=== PATIENT | male | born 1945 | race African-American/Black ===

== ENCOUNTER → 2016-12-03 | Outpatient (CLI) | payer OTHER ==
[~2016-12-03] MED LIST: ALBUTEROL2.5 MG/3 M IH; AMBIEN5 MG GT; AMBIEN5 MG PO; APRESOLINE25 MG GT; APRESOLINE25 MG PO; ASPIR 8181 M1 PO; ASPIR-LOW81 MG PO; ASPIRIN81 M2 GT; ATARAX,VISTARIL25 MG GT; ATIVAN0.5 MG PO; AUGMENTIN875 MG PO; Aspirin Chewable GT; BACTRIM,SEPT1 TABLET PO; BANOPHEN12.5 MG/5 GT; BENADRYL A12.5 MG/5 GT; BENADRYL25 MG GT; CARAFATE1 GM GT; CARAFATE1 GM PO; CARAFATE100 MG/ML GT; CARDENE30 MG PO; CARVEDILOL25 MG GT; CEFEPIME HCL1 GM IM; CEFEPIME-D1 GM/50 ML IV; CONSTULOSE10 GM/15 M GT; CONSTULOSE10 GM/15 M PO; COREG12.5 M1 GT; COREG12.5 M1 PO; COREG25 M1 GT; COREG25 M1 PO; COUGH SYRU100 MG/5 M GT; Coreg PO; DAILY VIT FORM1 EACH PO; DAILY VITE WIT1 EACH GT; DIALYVITE 3,001 EACH GT; DIAZEPAM10 MG GT; DITROPAN XL10 MG PO; DULCOLAX10 MG PR; DUONEB 2.5-0.5 M3 ML AEROSOL; DURAGESIC50 MCG TD; EPOGEN,PRO3000 UNITS IV; Epogen,Procrit IV; FENTANYL1 EAC1 TD; FEOSOL325 MG PO; FERROUS SU220 MG/53 PO; FLEET ENEMA-AD118 ML PR; FLONASE16 G1 BOTH NARES; FOLIC ACID1 MG PO; GAVILAX17 GM PO; HYDRALAZINE HCL25 MG GT; HYDRALAZINE HCL25 MG PO; HYDROXYZINE HCL25 MG GT; K-PHOS NEUTRAL250 M1 GT; KLONOPIN1 MG PO; KLOR-CON 1010 ME1 PO; LACTULOSE10 GM/151 PO; LASIX40 MG PO; LEVAQUIN250 MG PO; LEVAQUIN500 MG PO; LEVOFLOXACIN500 MG GT; LEXAPRO20 MG PO; LO-DOSE ASPIRIN81 M1 PO; LOW DOSE ASPIRI81 M1 PO; METOCLOPRAMIDE H5 MG GT; METOCLOPRAMIDE H5 MG PO; MILK OF MAGN PO; MIRALAX17 GM GT; MIRALAX255 GM GT; MOBIC7.5 MG PO; MORPHINE SULFAT15 M1 PO; NEPHRO-VITE,1 TABLET GT; NEPRO CARB STE237 ML GT; NICARDIPINE HCL30 MG GT; NOVOLOG PE100 UNITS/ SC; OMEPRAZOLE40 M1 GT; OXYCODONE HCL10 MG PO; PAIN & FEVER325 MG PO; PERIDEX1 ML MM; PHOSPHA250 MG PO; POLYETHYLENE GL17 GM PO; PREDNISONE10 MG PO; PREVACID SOLUTA30 MG GT; PREVACID30 MG GT; PREVACID30 MG PO; PRILOSEC40 MG GT; PRO-STAT AWC LI30 ML PO; PROCRIT10000 UNI1 IV; PROMETHAZINE HC25 M1 PO; PROMETHAZINE12.5 M1 PO; PROTEIN POWDER454 G1 PO; PROTONIX40 MG PO; PROVENTIL HFA6.7 GM IH; PROVENTIL,2.5 MG/0.5 AEROSOL; PROVENTIL,2.5 MG/3 M IH; PULMICORT0.5 MG/21 IH; Q-TUSSIN DM SY240 ML PO; REGLAN5 MG GT; REQUIP0.5 MG GT; REQUIP0.5 MG PO; SENNA8.6 M1 GT; SENNA8.6 MG GT; SENNA8.6 MG PO; SENOKOT,SENN1 TABLET GT; SENSIPAR30 MG GT; SENSIPAR30 MG PO; SODIUM CHLORIDE1 G1 PO; SUCRALFATE1 GM GT; Sensipar GT; TRAZODONE HCL50 MG PO; TYLENOL REGULA325 MG GT; TYLENOL REGULA325 MG PO; VALIUM10 MG GT; VANCOCIN HCL125 MG PO; VENOFER100 MG/5 M IV; VITAMIN D31000 UNIT GT; ZOFRAN0.8 MG/1 M GT; ZOFRAN4 MG GT; ZOFRAN4 MG PO; [UNRECOGNIZED DRUG - OTHER] PO
== END ==
LOC: RAD 13:10 → EDSTATUS 13:30 → RAD 13:30
PROC: 0DH67UZ Insertion of Feeding Device into Stomach, Via Natural or Artificial Opening (ICD-10-PCS; principal; 2016-12-03)
DX: Z43.1 Encounter for attention to gastrostomy (principal)
CPT/HCPCS: C1766

== ENCOUNTER → 2017-03-04 | Outpatient (CLI) | payer OTHER ==
[~2017-03-04] VITALS: Ht 172.7 cm; Wt 53.5 kg
== END ==
LOC: RAD 13:48
PROC: 0DHA7DZ Insertion of Intraluminal Device into Jejunum, Via Natural or Artificial Opening (ICD-10-PCS; principal; 2017-03-04)
DX: K94.20 Gastrostomy complication, unspecified (principal)
CPT/HCPCS: C1769

== ENCOUNTER → 2017-06-04 | Outpatient (CLI) | payer OTHER ==
[~2017-06-04] MED LIST changes: +CORTIZONE-10 PL57 GM TP; +HYDRALAZINE HCL10 MG PO
== END ==
LOC: RAD 10:35
PROC: 0DH87UZ Insertion of Feeding Device into Small Intestine, Via Natural or Artificial Opening (ICD-10-PCS; principal; 2017-06-04)
DX: K94.23 Gastrostomy malfunction (principal)
CPT/HCPCS: C1766

== ENCOUNTER 2017-06-24 20:57 | Emergency (ER) | payer OTHER ==
[~2017-06-24] VITALS: Ht 167.6 cm; Wt 60.4 kg
[2017-06-24 22:18] LABS: HEMATOCRIT 42.4 % (38.0-50.0); MCH 30.8 PG (29.0-34.0); MCHC 30.9 G/DL (30.0-36.0); MCV 99.5 FL (86-99); MEAN PLAT.VOLUME 10.7 uM^3 (9.0-12.4); PLATELET COUNT 236 K/uL (156-360); RBC DIS.WIDTH-SD 55.3 % (39-53); RED BLOOD COUNT 4.26 M/uL (4.00-5.50); WHITE BLOOD COUNT 10.8 K/uL (4.1-10.2)
[2017-06-24 22:24] LABS: INTER. NORMALIZED RATIO 1.2
[2017-06-24 22:27] LABS: PTT 35.3 SEC (25-37)
[2017-06-24 22:29] LABS: CHLORIDE 94 mEq/L (99-109); SODIUM 140 mEq/L (136-147)
[2017-06-24 22:32] LABS: GLUCOSE 120 mg/dL (70-99)
[2017-06-24 22:33] LABS: ANION GAP 18 MEQ/L (2-14); TOTAL BILIRUBIN 0.7 mg/dL (0.0-1.0)
[2017-06-24 22:35] LABS: ALKALINE PHOSPHATASE 629 IU/L (3-129); GFR ESTIMATE (CALCULATED) 16 mL/min/
[2017-06-24 22:36] LABS: UREA NITROGEN (BUN) 66 mg/dL (9-23)
[2017-06-25 02:27] VITALS: BP 115/65
== END 2017-06-25 02:29 | disposition home or self-care (01) ==
LOC: EME → EDBD 20:57 → EME 06-25 02:29
PROVIDERS: Emergency Medicine
DX: K52.9 Noninfective gastroenteritis and colitis, unspecified (principal); I12.0 Hypertensive chronic kidney disease with stage 5 chronic kidney disease or end stage renal disease; E11.22 Type 2 diabetes mellitus with diabetic chronic kidney disease; N18.6 End stage renal disease; Z99.2 Dependence on renal dialysis; J44.9 Chronic obstructive pulmonary disease, unspecified
CPT/HCPCS: 71020; 76705; 80053; 83605; 85027; 85610; 85730; 86900; 86901; 99281; 99285; J7030

== ENCOUNTER 2017-08-19 02:01 | Inpatient (IN) | payer OTHER ==
[~2017-08-19] VITALS: Ht 172.7 cm; Wt 68.4 kg
[~2017-08-19 02:01] MED LIST changes: -CONSTULOSE10 GM/15 M PO; -Q-TUSSIN DM SY240 ML PO; +SENSIPAR60 MG GT; +SODIUM CHLORIDE1 G1 GT; -SODIUM CHLORIDE1 G1 PO; +TUSSIN CHE100 MG/5 M GT; -ZOFRAN4 MG PO
[2017-08-19 02:36] LABS: BASOPHIL COUNT 0.1 K/uL (0-0.1); EOSINOPHIL (%) 0.2 % (0-5); HEMATOCRIT 44.1 % (38.0-50.0); IMMATURE GRANULOCYTE (%) 0.5 % (0.0-0.7); IMMATURE GRANULOCYTE COUNT 0.1 K/uL; INSTRUMENT ABS NEUTROPHIL CT 12.8 K/uL; LYMPHOCYTE COUNT 0.9 K/uL (1.0-2.8); MCHC 30.4 G/DL (30.0-36.0); MCV 102.1 FL (86-99); MEAN PLAT.VOLUME 11.8 uM^3 (9.0-12.4); MONOCYTE COUNT 0.7 K/uL (0-0.8); NEUTROPHIL (%) 87.8 % (45-76); NEUTROPHIL COUNT 12.8 K/uL (1.8-6.4); NRBC (%) 0.1 /100 WBC (0-0); PLATELET COUNT 147 K/uL (156-360); RBC DIS.WIDTH-SD 64.2 % (39-53); RED BLOOD COUNT 4.32 M/uL (4.00-5.50); WHITE BLOOD COUNT 14.6 K/uL (4.1-10.2)
[2017-08-19 02:41] LABS: INTER. NORMALIZED RATIO 1.3; PROTHROMBIN TIME 14.1 SEC (10.2-12.9)
[2017-08-19 02:44] LABS: PTT 38.6 SEC (25-37)
[2017-08-19 02:46] LABS: CHLORIDE 93 mEq/L (99-109); POTASSIUM 3.8 mEq/L (3.7-5.4); SODIUM 142 mEq/L (136-147)
[2017-08-19 02:48] LABS: GLUCOSE 217 mg/dL (70-99)
[2017-08-19 02:50] LABS: ANION GAP 18 MEQ/L (2-14); TOTAL BILIRUBIN 0.6 mg/dL (0.0-1.0)
[2017-08-19 02:52] LABS: ALKALINE PHOSPHATASE 579 IU/L (3-129); GFR ESTIMATE (CALCULATED) 22 mL/min/
[2017-08-19 02:53] LABS: UREA NITROGEN (BUN) 28 mg/dL (9-23)
[2017-08-19 02:55] LABS: LIPASE 49 U/L (1.0-51.0)
[2017-08-19 03:10] LABS: TROP-I INTERPRETATION NEGATIVE; TROPONIN-I 0.04 ng/mL (0.0-0.30)
[2017-08-19 07:39] LABS: HEMATOCRIT 38.7 % (38.0-50.0)
[2017-08-19] MEDS ORDERED: VITAMIN D31000 UNI2 GT (11:25)
[2017-08-19 12:05] VITALS: BP 131/63
[2017-08-19 15:17] VITALS: BP 142/63
[2017-08-19 19:35] VITALS: BP 131/71
[2017-08-19 23:46] VITALS: BP 132/65
[2017-08-20 04:41] VITALS: BP 130/69
[2017-08-20 08:02] LABS: HEMATOCRIT 33.9 % (38.0-50.0); MCH 31.1 PG (29.0-34.0); MCHC 29.2 G/DL (30.0-36.0); MCV 106.6 FL (86-99); MEAN PLAT.VOLUME 9.9 uM^3 (9.0-12.4); WHITE BLOOD COUNT 13.3 K/uL (4.1-10.2)
[2017-08-20 08:14] LABS: PLATELET COUNT 217 K/uL (156-360); RED BLOOD COUNT 3.18 M/uL (4.00-5.50)
[2017-08-20 08:19] LABS: ANION GAP 11 MEQ/L (2-14); CHLORIDE 103 MEQ/L (99-109); POTASSIUM 3.4 MEQ/L (3.7-5.4); SAMPLE HEMOLYSIS CHECK 0; SAMPLE ICTERIC CHECK 0; SAMPLE LIPEMIA CHECK 0; SODIUM 144 MEQ/L (136-147); UREA NITROGEN (BUN) 41 mg/dL (9-23)
[2017-08-20 08:52] LABS: GFR ESTIMATE (CALCULATED) 15 mL/min/; GLUCOSE 114 mg/dL (70-99)
[2017-08-20 09:16] VITALS: BP 142/84
[2017-08-20 11:52] VITALS: BP 146/83
[2017-08-20 18:55] LABS: HEMATOCRIT 34.3 % (38.0-50.0); MCV 108.2 FL (86-99)
[2017-08-20 20:27] VITALS: BP 138/71
[2017-08-20 23:33] VITALS: BP 160/67
[2017-08-21] VITALS (7 sets, daily range): BP systolic 141–199; BP diastolic 70–92
[2017-08-21 00:38] LABS: HEMATOCRIT 35.7 % (38.0-50.0); MCV 107.2 FL (86-99)
[2017-08-21 06:13] LABS: EOSINOPHIL (%) 2.5 % (0-5); EOSINOPHIL COUNT 0.2 K/uL (0-0.3); HEMATOCRIT 35.9 % (38.0-50.0); IMMATURE GRANULOCYTE (%) 0.3 % (0.0-0.7); LYMPHOCYTE COUNT 1.2 K/uL (1.0-2.8); MCH 32.4 PG (29.0-34.0); MCHC 29.5 G/DL (30.0-36.0); MCV 109.8 FL (86-99); MONOCYTE (%) 7.5 % (3-12); MONOCYTE COUNT 0.7 K/uL (0-0.8); NEUTROPHIL (%) 76.1 % (45-76); RBC DIS.WIDTH-CV 18.2 % (11.8-14.6); RBC DIS.WIDTH-SD 73.6 % (39-53); RED BLOOD COUNT 3.27 M/uL (4.00-5.50); WHITE BLOOD COUNT 9.2 K/uL (4.1-10.2)
[2017-08-21 06:43] LABS: ANION GAP 12 MEQ/L (2-14); CHLORIDE 110 MEQ/L (99-109); GFR ESTIMATE (CALCULATED) 23 mL/min/; GLUCOSE 122 mg/dL (70-99); POTASSIUM 3.8 MEQ/L (3.7-5.4); SAMPLE HEMOLYSIS CHECK 0; SAMPLE ICTERIC CHECK 0; SAMPLE LIPEMIA CHECK 0; SODIUM 147 MEQ/L (136-147)
[2017-08-21 06:54] LABS: UREA NITROGEN (BUN) 20 mg/dL (9-23)
[2017-08-21 08:13] LABS: HEMATOLOGY COMMENT 1 UNABLE TO REPORT
[2017-08-21 08:14] LABS: PLATELET COUNT UNABLE TO REPORT K/uL (156-360)
[2017-08-22 03:33] VITALS: BP 162/72
[2017-08-22 06:47] LABS: HEMATOCRIT 35.2 % (38.0-50.0); MCH 32.5 PG (29.0-34.0); MCHC 29.5 G/DL (30.0-36.0); MEAN PLAT.VOLUME 9.9 uM^3 (9.0-12.4); RBC DIS.WIDTH-CV 18.3 % (11.8-14.6); RBC DIS.WIDTH-SD 72.9 % (39-53); WHITE BLOOD COUNT 8.8 K/uL (4.1-10.2)
[2017-08-22 07:05] LABS: PLATELET COUNT 194 K/uL (156-360)
[2017-08-22 07:12] LABS: ANION GAP 13 MEQ/L (2-14); CHLORIDE 106 MEQ/L (99-109); GFR ESTIMATE (CALCULATED) 14 mL/min/; GLUCOSE 175 mg/dL (70-99); POTASSIUM 3.4 MEQ/L (3.7-5.4); SAMPLE HEMOLYSIS CHECK 0; SAMPLE ICTERIC CHECK 0; SAMPLE LIPEMIA CHECK 0; SODIUM 148 MEQ/L (136-147); UREA NITROGEN (BUN) 42 mg/dL (9-23)
[2017-08-22 09:10] VITALS: BP 159/81
[2017-08-22 11:42] VITALS: BP 148/75
[2017-08-22 16:07] VITALS: BP 151/90
[2017-08-22 19:35] VITALS: BP 181/72
[2017-08-23 03:31] VITALS: BP 174/72
[2017-08-23 06:28] LABS: HEMATOCRIT 35.2 % (38.0-50.0); MCH 30.7 PG (29.0-34.0); MCHC 28.4 G/DL (30.0-36.0); NRBC (%) 0.2 /100 WBC (0-0); PLATELET COUNT 209 K/uL (156-360); RBC DIS.WIDTH-CV 18.2 % (11.8-14.6); RED BLOOD COUNT 3.26 M/uL (4.00-5.50); WHITE BLOOD COUNT 8.5 K/uL (4.1-10.2)
[2017-08-23 06:59] LABS: ANION GAP 17 MEQ/L (2-14); CHLORIDE 108 MEQ/L (99-109); GFR ESTIMATE (CALCULATED) 11 mL/min/; GLUCOSE 204 mg/dL (70-99); POTASSIUM 3.4 MEQ/L (3.7-5.4); SAMPLE HEMOLYSIS CHECK 0; SAMPLE ICTERIC CHECK 0; SAMPLE LIPEMIA CHECK 0; SODIUM 153 MEQ/L (136-147)
[2017-08-23 07:08] LABS: UREA NITROGEN (BUN) 67 mg/dL (9-23)
[2017-08-23 07:13] LABS: POINT-OF-CARE METER ID UU13113717
[2017-08-23 07:14] VITALS: BP 138/73
[2017-08-23 12:27] LABS: POINT-OF-CARE METER ID UU13113717
[2017-08-23 15:12] VITALS: BP 123/60
[2017-08-23 16:54] LABS: POINT-OF-CARE METER ID UU14188625
[2017-08-23 19:34] VITALS: BP 137/99
[2017-08-23 20:16] LABS: POINT-OF-CARE METER ID UU14188625
[2017-08-23 20:22] LABS: HEMATOCRIT 39.4 % (38.0-50.0); MCH 32.9 PG (29.0-34.0); MCHC 30.2 G/DL (30.0-36.0); MCV 108.8 FL (86-99); MEAN PLAT.VOLUME 9.9 uM^3 (9.0-12.4); PLATELET COUNT 235 K/uL (156-360); RBC DIS.WIDTH-CV 18.1 % (11.8-14.6); RBC DIS.WIDTH-SD 72.3 % (39-53); RED BLOOD COUNT 3.62 M/uL (4.00-5.50); WHITE BLOOD COUNT 20.1 K/uL (4.1-10.2)
[2017-08-23 20:43] LABS: TROP-I INTERPRETATION NEGATIVE; TROPONIN-I 0.05 ng/mL (0.0-0.30)
[2017-08-23 23:52] VITALS: BP 147/69
[2017-08-24 06:31] LABS: ANION GAP 14 MEQ/L (2-14); CHLORIDE 104 MEQ/L (99-109); GFR ESTIMATE (CALCULATED) 16 mL/min/; GLUCOSE 72 mg/dL (70-99); POTASSIUM 3.6 MEQ/L (3.7-5.4); SAMPLE HEMOLYSIS CHECK 0; SAMPLE ICTERIC CHECK 0; SAMPLE LIPEMIA CHECK 0; SODIUM 143 MEQ/L (136-147); UREA NITROGEN (BUN) 40 mg/dL (9-23)
[2017-08-24 07:12] VITALS: BP 119/58
[2017-08-24 07:13] LABS: POINT-OF-CARE METER ID UU14188625
[2017-08-24 09:53] LABS: HEMATOCRIT 35.9 % (38.0-50.0); MCH 31.8 PG (29.0-34.0); MCHC 29.2 G/DL (30.0-36.0); MCV 108.8 FL (86-99); MEAN PLAT.VOLUME 10.6 uM^3 (9.0-12.4); PLATELET COUNT 204 K/uL (156-360); RBC DIS.WIDTH-CV 18.1 % (11.8-14.6); RBC DIS.WIDTH-SD 72.8 % (39-53); WHITE BLOOD COUNT 22.9 K/uL (4.1-10.2)
[2017-08-24 11:24] LABS: POINT-OF-CARE METER ID UU14188625
[2017-08-24 15:14] VITALS: BP 129/59
[2017-08-24 16:49] LABS: POINT-OF-CARE METER ID UU14188625
[2017-08-24 20:23] VITALS: BP 105/49
[2017-08-24 23:39] VITALS: BP 143/66
[2017-08-25 06:57] LABS: HEMATOCRIT 35.6 % (38.0-50.0); MCH 31.2 PG (29.0-34.0); MCHC 28.9 G/DL (30.0-36.0); MCV 107.9 FL (86-99); MEAN PLAT.VOLUME 10.3 uM^3 (9.0-12.4); PLATELET COUNT 184 K/uL (156-360); WHITE BLOOD COUNT 14.7 K/uL (4.1-10.2)
[2017-08-25 07:13] VITALS: BP 139/65
[2017-08-25 07:24] LABS: ANION GAP 17 MEQ/L (2-14); CHLORIDE 104 MEQ/L (99-109); GFR ESTIMATE (CALCULATED) 12 mL/min/; GLUCOSE 74 mg/dL (70-99); POTASSIUM 3.7 MEQ/L (3.7-5.4); SAMPLE HEMOLYSIS CHECK 0; SAMPLE ICTERIC CHECK 0; SAMPLE LIPEMIA CHECK 0; SODIUM 146 MEQ/L (136-147)
[2017-08-25 07:25] LABS: UREA NITROGEN (BUN) 64 mg/dL (9-23)
[2017-08-25] MEDS ORDERED: AUGMENTIN500 MG GT (08:22)
[2017-08-25] MEDS ORDERED: APRESOLINE25 MG GT ×2 (08:23)
[2017-08-25] MEDS ORDERED: SPIRIVA RESPIMAT4 GM IH (08:23)
[2017-08-25] MEDS ORDERED: ADVAIR HFA120 INHALA IH (08:24)
[2017-08-25] MEDS ORDERED: PREDNISONE1 MG/ML PO (08:27)
[2017-08-25] MEDS ORDERED: VALIUM10 MG GT (08:29)
[2017-08-25 11:48] LABS: POINT-OF-CARE METER ID UU14188625
== END 2017-08-25 14:55 | DRG 871 ==
LOC: EME 02:01 → 5SOUTH 04:27 → EDOF 04:27 → ENRESERV 04:31 → 5SOUTH 11:50
PROVIDERS: Emergency Medicine; Hospitalist; Internal Medicine; Internal Medicine Gastroenterology; Internal Medicine Nephrology; Physician Assistant
PROC: 5A1D70Z Performance of Urinary Filtration, Intermittent, Less than 6 Hours Per Day (ICD-10-PCS; principal; 2017-08-20)
DX: A41.9 Sepsis, unspecified organism (principal); J69.0 Pneumonitis due to inhalation of food and vomit; J44.1 Chronic obstructive pulmonary disease with (acute) exacerbation; I42.9 Cardiomyopathy, unspecified; N18.6 End stage renal disease; I50.9 Heart failure, unspecified; I13.2 Hypertensive heart and chronic kidney disease with heart failure and with stage 5 chronic kidney disease, or end stage renal disease; D63.1 Anemia in chronic kidney disease; E11.22 Type 2 diabetes mellitus with diabetic chronic kidney disease; E78.5 Hyperlipidemia, unspecified; E87.6 Hypokalemia; E87.2 Acidosis; E87.0 Hyperosmolality and hypernatremia; G89.4 Chronic pain syndrome; K20.9 Esophagitis, unspecified; R09.02 Hypoxemia; Z74.01 Bed confinement status; Z93.1 Gastrostomy status; Z87.820 Personal history of traumatic brain injury; Z99.81 Dependence on supplemental oxygen; K92.0 Hematemesis; Z86.14 Personal history of Methicillin resistant Staphylococcus aureus infection; Z99.2 Dependence on renal dialysis; Z66 Do not resuscitate
CPT/HCPCS: 71010; 71250; 74176; 80048; 80053; 80069; 80202; 82948; 83605; 83690; 84484; 85014; 85018; 85025; 85027; 85610; 85730; 86850; 86900; 86901; 87040; 93005; 94640; 94640 76; 94760; 94799; 99202; 99281; 99285; C9113; J0295; J0360; J1270; J1644; J1756; J2270; J2405; J2543; J2765; J3370; J7040; J7042; J7050; J7512; S0028

== ENCOUNTER → 2017-09-09 | Outpatient (CLI) | payer OTHER ==
[~2017-09-09] MED LIST changes: +ADVAIR HFA120 INHALA IH; +AUGMENTIN500 MG GT; +PREDNISONE1 MG/ML PO; +SPIRIVA RESPIMAT4 GM IH; +VITAMIN D31000 UNI2 GT
== END ==
LOC: RAD 12:24
PROC: 0DH87UZ Insertion of Feeding Device into Small Intestine, Via Natural or Artificial Opening (ICD-10-PCS; principal; 2017-09-09)
DX: K94.20 Gastrostomy complication, unspecified (principal)
CPT/HCPCS: C1769

== ENCOUNTER 2017-10-03 23:02 | Observation (INO) | payer OTHER ==
[~2017-10-03] VITALS: Ht 165.1 cm; Wt 60.8 kg
[2017-10-03 23:51] LABS: BASOPHIL COUNT 0.1 K/uL (0-0.1); EOSINOPHIL (%) 1.3 % (0-5); EOSINOPHIL COUNT 0.2 K/uL (0-0.3); IMMATURE GRANULOCYTE (%) 0.8 % (0.0-0.7); IMMATURE GRANULOCYTE COUNT 0.1 K/uL; INSTRUMENT ABS NEUTROPHIL CT 11.5 K/uL; LYMPHOCYTE COUNT 1.3 K/uL (1.0-2.8); MCH 31.9 PG (29.0-34.0); MCHC 31.3 G/DL (30.0-36.0); MCV 102.1 FL (86-99); MONOCYTE (%) 6.4 % (3-12); MONOCYTE COUNT 0.9 K/uL (0-0.8); NEUTROPHIL (%) 81.8 % (45-76); NEUTROPHIL COUNT 11.5 K/uL (1.8-6.4); PLATELET COUNT 229 K/uL (156-360); RBC DIS.WIDTH-CV 17.2 % (11.8-14.6); RBC DIS.WIDTH-SD 64.6 % (39-53); RED BLOOD COUNT 3.82 M/uL (4.00-5.50)
[2017-10-03 23:57] LABS: CHLORIDE 97 mEq/L (99-109); INTER. NORMALIZED RATIO 1.2; POTASSIUM 4.2 mEq/L (3.7-5.4); PROTHROMBIN TIME 13.2 SEC (10.2-12.9); SODIUM 137 mEq/L (136-147)
[2017-10-03 23:59] LABS: GLUCOSE 152 mg/dL (70-99); PTT 34.3 SEC (25-37)
[2017-10-04] LABS: ANION GAP 14 MEQ/L (2-14)
[2017-10-04 00:01] LABS: TOTAL BILIRUBIN 0.6 mg/dL (0.0-1.0)
[2017-10-04 00:03] LABS: ALKALINE PHOSPHATASE 771 IU/L (3-129); GFR ESTIMATE (CALCULATED) 12 mL/min/
[2017-10-04 00:04] LABS: UREA NITROGEN (BUN) 61 mg/dL (9-23)
[2017-10-04 00:05] LABS: DIRECT BILIRUBIN 0.2 mg/dL (0.0-0.3)
[2017-10-04 02:21] LABS: TROP-I INTERPRETATION NEGATIVE; TROPONIN-I 0.04 ng/mL (0.0-0.30)
[2017-10-04 05:29] VITALS: BP 133/63
[2017-10-04 08:27] VITALS: BP 140/77
[2017-10-04 11:48] VITALS: BP 154/74
[2017-10-04 12:35] LABS: TROP-I INTERPRETATION NEGATIVE; TROPONIN-I 0.03 ng/mL (0.0-0.30)
[2017-10-04] MEDS ORDERED: ASPIR-LOW81 MG PO (13:47)
[2017-10-04] MEDS ORDERED: CARVEDILOL6.25 MG PO (13:47)
[2017-10-04 18:18] LABS: TROP-I INTERPRETATION NEGATIVE; TROPONIN-I 0.03 ng/mL (0.0-0.30)
[2017-10-04 19:00] VITALS: BP 140/81
[2017-10-04 23:49] VITALS: BP 107/51
[2017-10-05 04:00] VITALS: BP 103/51
[2017-10-05 05:41] LABS: BASOPHIL COUNT 0.1 K/uL (0-0.1); EOSINOPHIL (%) 2.6 % (0-5); EOSINOPHIL COUNT 0.2 K/uL (0-0.3); HEMATOCRIT 34.2 % (38.0-50.0); IMMATURE GRANULOCYTE (%) 0.8 % (0.0-0.7); IMMATURE GRANULOCYTE COUNT 0.1 K/uL; INSTRUMENT ABS NEUTROPHIL CT 6.7 K/uL; LYMPHOCYTE COUNT 1.5 K/uL (1.0-2.8); MCH 32.1 PG (29.0-34.0); MCHC 30.4 G/DL (30.0-36.0); MCV 105.6 FL (86-99); MEAN PLAT.VOLUME 10.3 uM^3 (9.0-12.4); MONOCYTE COUNT 0.7 K/uL (0-0.8); NEUTROPHIL (%) 71.8 % (45-76); NEUTROPHIL COUNT 6.7 K/uL (1.8-6.4); PLATELET COUNT 212 K/uL (156-360); RBC DIS.WIDTH-CV 16.9 % (11.8-14.6); RBC DIS.WIDTH-SD 66.4 % (39-53); RED BLOOD COUNT 3.24 M/uL (4.00-5.50); WHITE BLOOD COUNT 9.3 K/uL (4.1-10.2)
[2017-10-05 06:07] LABS: ALKALINE PHOSPHATASE 589 IU/L (3-129); ANION GAP 10 MEQ/L (2-14); ANION GAP 9 MEQ/L (2-14); CHLORIDE 100 MEQ/L (99-109); CHLORIDE 99 MEQ/L (99-109); GFR ESTIMATE (CALCULATED) 20 mL/min/; GLUCOSE 135 mg/dL (70-99); POTASSIUM 3.9 MEQ/L (3.7-5.4); SAMPLE HEMOLYSIS CHECK 0; SAMPLE ICTERIC CHECK 0; SAMPLE LIPEMIA CHECK 1; SODIUM 138 MEQ/L (136-147); SODIUM 139 MEQ/L (136-147); TOTAL BILIRUBIN 0.4 MG/DL (0.0-1.0); UREA NITROGEN (BUN) 33 mg/dL (9-23)
[2017-10-05 08:24] VITALS: BP 113/75
[2017-10-05 10:59] VITALS: BP 119/79
== END 2017-10-05 12:17 ==
LOC: EME → EDBD 23:02 → EME 23:02 → ENPENDDIS 10-04 → 5WEST 10-04 03:48 → EDOF 10-04 03:48 → ENRESERV 10-04 03:48 → EDOF 10-04 03:48 → ENRESERV 10-04 04:05 → 5WEST 10-04 05:15
PROVIDERS: Emergency Medicine; Hospitalist; Physician Assistant
PROC: 5A1D70Z Performance of Urinary Filtration, Intermittent, Less than 6 Hours Per Day (ICD-10-PCS; principal; 2017-10-04)
DX: R07.89 Other chest pain (principal); R11.2 Nausea with vomiting, unspecified; I12.0 Hypertensive chronic kidney disease with stage 5 chronic kidney disease or end stage renal disease; N18.6 End stage renal disease; Z99.2 Dependence on renal dialysis; K21.9 Gastro-esophageal reflux disease without esophagitis; Z87.820 Personal history of traumatic brain injury; Z93.1 Gastrostomy status; D64.9 Anemia, unspecified; I42.9 Cardiomyopathy, unspecified; J44.9 Chronic obstructive pulmonary disease, unspecified; R06.6 Hiccough; Z79.82 Long term (current) use of aspirin; Z74.01 Bed confinement status; Z87.891 Personal history of nicotine dependence; Z82.49 Family history of ischemic heart disease and other diseases of the circulatory system
CPT/HCPCS: 71010; 74176; 78580; 80048; 80053; 80076; 84484; 85025; 85027; 85610; 85730; 86850; 86900; 86901; 93005; 93306; 94640; 94640 76; 94799; 99202; 99281; 99285; A9540; C9113; G0257; G0378; J1644; J7030

== ENCOUNTER → 2017-11-04 | Outpatient (CLI) | payer OTHER ==
[~2017-11-04] MED LIST changes: +CARVEDILOL6.25 MG PO
== END ==
LOC: RAD 12:52
PROC: 0DH87UZ Insertion of Feeding Device into Small Intestine, Via Natural or Artificial Opening (ICD-10-PCS; principal; 2017-11-04)
DX: K94.20 Gastrostomy complication, unspecified (principal)
CPT/HCPCS: C1769

== ENCOUNTER 2017-11-16 15:01 | Observation (INO) | payer OTHER ==
[~2017-11-16] VITALS: Ht 172.7 cm; Wt 62.1 kg
[2017-11-16 15:51] LABS: BASOPHIL (%) 0.4 % (0-1); EOSINOPHIL (%) 2.7 % (0-5); EOSINOPHIL COUNT 0.3 K/uL (0-0.3); HEMATOCRIT 33.6 % (38.0-50.0); HEMOGLOBIN 10.5 G/DL (12.5-16.6); IMMATURE GRANULOCYTE (%) 1.1 % (0.0-0.7); LYMPHOCYTE (%) 15.7 % (15-42); LYMPHOCYTE COUNT 1.5 K/uL (1.0-2.8); MCH 33.1 PG (29.0-34.0); MCHC 31.3 G/DL (30.0-36.0); MONOCYTE (%) 8.1 % (3-12); MONOCYTE COUNT 0.8 K/uL (0-0.8); NEUTROPHIL COUNT 6.9 K/uL (1.8-6.4); PLATELET COUNT 224 K/uL (156-360); RBC DIS.WIDTH-CV 15.5 % (11.8-14.6); RBC DIS.WIDTH-SD 60.3 % (39-53); RED BLOOD COUNT 3.17 M/uL (4.00-5.50); WHITE BLOOD COUNT 9.5 K/uL (4.1-10.2)
[2017-11-16 15:57] LABS: INTER. NORMALIZED RATIO 1.2
[2017-11-16 15:59] LABS: CHLORIDE 96 mEq/L (99-109); POTASSIUM 3.8 mEq/L (3.7-5.4); SODIUM 142 mEq/L (136-147)
[2017-11-16 16:00] LABS: PTT 34.5 SEC (25-37)
[2017-11-16 16:01] LABS: GLUCOSE 172 mg/dL (70-99)
[2017-11-16 16:05] LABS: CREATININE 4.7 mg/dL (0.6-1.3); GFR ESTIMATE (CALCULATED) 16 mL/min/ (58.99-99999)
[2017-11-16 16:06] LABS: UREA NITROGEN (BUN) 57 mg/dL (9-23)
[2017-11-16 16:13] LABS: TROP-I INTERPRETATION NEGATIVE; TROPONIN-I 0.09 ng/mL (0.0-0.30)
[2017-11-16] MEDS ORDERED: VALIUM10 MG GT (20:41)
[2017-11-16] MEDS ORDERED: NITROSTAT0.4 MG SL (20:43)
[2017-11-16] MEDS ORDERED: NEUTRA-PHOS,1 PACKET GT (20:45)
[2017-11-16] MEDS ORDERED: SPIRIVA1 INHALATI IH (20:46)
[2017-11-16] MEDS ORDERED: ADVAIR HFA120 INHALA IH (20:46)
[2017-11-16] MEDS ORDERED: MILK OF MAGN PO (20:51)
[2017-11-16] MEDS ORDERED: DULCOLAX10 MG PR (20:51)
[2017-11-16] MEDS ORDERED: FLEET ENEMA-AD118 ML PR (20:51)
[2017-11-16 23:41] LABS: TROP-I INTERPRETATION NEGATIVE; TROPONIN-I 0.07 ng/mL (0.0-0.30)
[2017-11-17 02:44] VITALS: BP 142/66
[2017-11-17 06:09] LABS: BASOPHIL (%) 0.8 % (0-1); BASOPHIL COUNT 0.1 K/uL (0-0.1); EOSINOPHIL (%) 2.8 % (0-5); EOSINOPHIL COUNT 0.3 K/uL (0-0.3); HEMATOCRIT 34.9 % (38.0-50.0); HEMOGLOBIN 10.6 G/DL (12.5-16.6); IMMATURE GRANULOCYTE (%) 0.8 % (0.0-0.7); LYMPHOCYTE (%) 17.8 % (15-42); LYMPHOCYTE COUNT 1.8 K/uL (1.0-2.8); MCH 31.8 PG (29.0-34.0); MCHC 30.4 G/DL (30.0-36.0); MCV 104.8 FL (86-99); MONOCYTE (%) 7.8 % (3-12); MONOCYTE COUNT 0.8 K/uL (0-0.8); NEUTROPHIL COUNT 6.9 K/uL (1.8-6.4); PLATELET COUNT 254 K/uL (156-360); RBC DIS.WIDTH-CV 15.2 % (11.8-14.6); RBC DIS.WIDTH-SD 58.5 % (39-53); RED BLOOD COUNT 3.33 M/uL (4.00-5.50); WHITE BLOOD COUNT 9.9 K/uL (4.1-10.2)
[2017-11-17 06:23] LABS: TROP-I INTERPRETATION NEGATIVE; TROPONIN-I 0.06 ng/mL (0.0-0.30)
[2017-11-17 07:30] VITALS: BP 127/59
[2017-11-17 12:28] LABS: ALBUMIN 3.3 G/DL (3.2-4.8); CHLORIDE 95 MEQ/L (99-109); GFR ESTIMATE (CALCULATED) 13 mL/min/ (58.99-99999); GLUCOSE 132 mg/dL (70-99); PHOSPHORUS 3.8 mg/dL (2.5-4.9); POTASSIUM 3.9 MEQ/L (3.7-5.4); SODIUM 141 MEQ/L (136-147); UREA NITROGEN (BUN) 68 mg/dL (9-23)
[2017-11-17 12:29] LABS: CREATININE 5.6 MG/DL (0.6-1.3)
[2017-11-17 13:33] LABS: HEPATITIS B SURFACE ANTIGEN Nonreactive
[2017-11-17 19:00] VITALS: BP 115/56
[2017-11-18 00:48] VITALS: BP 94/55
[2017-11-18 01:27] VITALS: BP 125/58
[2017-11-18 04:35] VITALS: BP 132/60
[2017-11-18 07:55] VITALS: BP 97/52
[2017-11-18 12:10] VITALS: BP 111/52
[2017-11-18] MEDS ORDERED: LIDOCAINE700 MG TP (12:29)
== END 2017-11-18 15:07 ==
LOC: EME 15:01 → EDOF 22:19 → 5WEST 22:19 → ENRESERV 22:35 → EDOF 11-17 01:32 → 5WEST 11-17 02:31
PROVIDERS: Emergency Medicine; Internal Medicine Nephrology; Physician Assistant
PROC: 5A1D70Z Performance of Urinary Filtration, Intermittent, Less than 6 Hours Per Day (ICD-10-PCS; principal; 2017-11-18)
DX: R07.9 Chest pain, unspecified (principal); I12.0 Hypertensive chronic kidney disease with stage 5 chronic kidney disease or end stage renal disease; E11.22 Type 2 diabetes mellitus with diabetic chronic kidney disease; N18.6 End stage renal disease; D63.1 Anemia in chronic kidney disease; Z99.2 Dependence on renal dialysis; J44.9 Chronic obstructive pulmonary disease, unspecified; Z99.81 Dependence on supplemental oxygen; R13.10 Dysphagia, unspecified; Z87.820 Personal history of traumatic brain injury; Z87.01 Personal history of pneumonia (recurrent); Z93.1 Gastrostomy status; Z87.19 Personal history of other diseases of the digestive system; Z74.01 Bed confinement status; Z87.891 Personal history of nicotine dependence; Z79.82 Long term (current) use of aspirin
CPT/HCPCS: 71045; 71046; 80048; 80069; 84484; 85025; 85610; 85730; 87340; 93005; 94640; 94640 76; 94799; 99202; 99281; 99285; G0257; G0378

== ENCOUNTER → 2018-01-13 | Outpatient (CLI) | payer OTHER ==
[~2018-01-13] MED LIST changes: +LEVEMIR100 UNIT/2 SC; +LIDOCAINE700 MG TP; +NEUTRA-PHOS,1 PACKET GT; +NITROSTAT0.4 MG SL; +SENSIPAR60 MG PO; +SPIRIVA1 INHALATI IH
== END ==
LOC: RAD 13:26
PROC: 0DH87UZ Insertion of Feeding Device into Small Intestine, Via Natural or Artificial Opening (ICD-10-PCS; principal; 2018-01-13)
DX: K94.23 Gastrostomy malfunction (principal)
CPT/HCPCS: C1769

== ENCOUNTER → 2018-05-05 | Outpatient (CLI) | payer OTHER ==
[~2018-05-05] MED LIST changes: +BUDESONIDE0.5 MG/2 M IH
== END ==
LOC: RAD 04-27 14:00
PROC: 0DH87UZ Insertion of Feeding Device into Small Intestine, Via Natural or Artificial Opening (ICD-10-PCS; principal; 2018-05-05)
DX: K94.20 Gastrostomy complication, unspecified (principal)
CPT/HCPCS: C1769

== ENCOUNTER 2018-05-24 00:29 | Inpatient (IN) | payer OTHER ==
[~2018-05-24] VITALS: Ht 172.7 cm; Wt 65.3 kg
[2018-05-24 01:22] LABS: HEMATOCRIT 34.2 % (38.0-50.0); MCH 33.5 PG (29.0-34.0); MCHC 32.2 G/DL (30.0-36.0); MCV 104.3 FL (86-99); NRBC (%) 0.2 /100 WBC (0-0); PLATELET COUNT 234 K/uL (156-360); RBC DIS.WIDTH-CV 15.1 % (11.8-14.6); RBC DIS.WIDTH-SD 57.1 % (39-53); RED BLOOD COUNT 3.28 M/uL (4.00-5.50); WHITE BLOOD COUNT 16.3 K/uL (4.1-10.2)
[2018-05-24 01:23] LABS: CARBON DIOXIDE (BICARBONATE) 28.5 MEQ/L (20-31)
[2018-05-24 01:28] LABS: INTER. NORMALIZED RATIO 1.2
[2018-05-24 01:31] LABS: PTT 28.1 SEC (25-37)
[2018-05-24 01:34] LABS: ALBUMIN 3.8 g/dL (3.2-4.8); CHLORIDE 101 mEq/L (99-109); POTASSIUM 4.8 mEq/L (3.7-5.4); SODIUM 138 mEq/L (136-147)
[2018-05-24 01:36] LABS: GLUCOSE 130 mg/dL (70-99); TOTAL PROTEIN 8.7 g/dL (6.4-8.3)
[2018-05-24 01:38] LABS: TOTAL BILIRUBIN 0.6 mg/dL (0.0-1.0)
[2018-05-24 01:40] LABS: ALKALINE PHOSPHATASE 186 IU/L (3-129); CREATININE 3.4 mg/dL (0.6-1.3); GFR ESTIMATE (CALCULATED) 23 mL/min/ (58.99-99999)
[2018-05-24 01:41] LABS: UREA NITROGEN (BUN) 34 mg/dL (9-23)
[2018-05-24 01:42] LABS: AST (GOT) 18 IU/L (2-34)
[2018-05-24 01:43] LABS: ALT (GPT) 19 IU/L (3-49); LIPASE 65 U/L (1.0-51.0)
[2018-05-24 01:44] LABS: TROP-I INTERPRETATION NEGATIVE; TROPONIN-I 0.03 ng/mL (0.0-0.30)
[2018-05-24 06:30] VITALS: BP 128/65
[2018-05-24 08:07] LABS: CARBON DIOXIDE (BICARBONATE) 26.1 MEQ/L (20-31)
[2018-05-24 08:15] VITALS: BP 116/63
[2018-05-24 08:16] LABS: TROP-I INTERPRETATION NEGATIVE; TROPONIN-I 0.04 ng/mL (0.0-0.30)
[2018-05-24] MEDS ORDERED: ASPIRIN81 M2 GT (11:43)
[2018-05-24] MEDS ORDERED: PULMICORT0.5 MG/21 IH ×2 (11:45→11:46)
[2018-05-24] MEDS ORDERED: CARAFATE100 MG/ML GT (11:47)
[2018-05-24] MEDS ORDERED: COREG3.125 M1 GT (11:48)
[2018-05-24] MEDS ORDERED: DIALYVITE 3,001 EACH GT (11:49)
[2018-05-24] MEDS ORDERED: DUONEB 2.5-0.5 M3 ML AEROSOL (11:51)
[2018-05-24] MEDS ORDERED: LACTULOSE10 GM/151 GT (11:54)
[2018-05-24] MEDS ORDERED: LEVEMIR FL100 UNIT/1 SC (11:55)
[2018-05-24] MEDS ORDERED: METOCLOPRAMIDE H5 MG GT (11:58)
[2018-05-24] MEDS ORDERED: NITROSTAT0.4 MG SL (11:59)
[2018-05-24] MEDS ORDERED: PREVACID SOLUTA30 MG GT (12:01)
[2018-05-24] MEDS ORDERED: NIZORAL SHAMPO120 ML TP (12:01)
[2018-05-24] MEDS ORDERED: SENNA8.6 MG GT (12:03)
[2018-05-24] MEDS ORDERED: SODIUM CHLORIDE1 G1 GT (12:03)
[2018-05-24] MEDS ORDERED: TRIDERM28.4 GM TP (12:05)
[2018-05-24] MEDS ORDERED: VITAMIN D31000 UNI2 GT (12:06)
[2018-05-24] MEDS ORDERED: ZOFRAN4 MG GT (12:07)
[2018-05-24 12:09] VITALS: BP 120/60
[2018-05-24 15:04] VITALS: BP 138/66
[2018-05-24 19:28] VITALS: BP 149/70
[2018-05-25 00:12] VITALS: BP 124/58
[2018-05-25 06:02] LABS: BASOPHIL (%) 0.3 % (0-1); EOSINOPHIL COUNT 0.1 K/uL (0-0.3); HEMATOCRIT 29.8 % (38.0-50.0); HEMOGLOBIN 9.1 G/DL (12.5-16.6); IMMATURE GRANULOCYTE (%) 0.5 % (0.0-0.7); LYMPHOCYTE (%) 8.4 % (15-42); LYMPHOCYTE COUNT 1.2 K/uL (1.0-2.8); MCH 32.6 PG (29.0-34.0); MCHC 30.5 G/DL (30.0-36.0); MCV 106.8 FL (86-99); MONOCYTE (%) 5.6 % (3-12); MONOCYTE COUNT 0.8 K/uL (0-0.8); NEUTROPHIL (%) 84.2 % (45-76); NEUTROPHIL COUNT 12.1 K/uL (1.8-6.4); RBC DIS.WIDTH-CV 15.5 % (11.8-14.6); RBC DIS.WIDTH-SD 60.4 % (39-53); RED BLOOD COUNT 2.79 M/uL (4.00-5.50); WHITE BLOOD COUNT 14.4 K/uL (4.1-10.2)
[2018-05-25 06:21] LABS: ALBUMIN 3.3 G/DL (3.2-4.8); ALKALINE PHOSPHATASE 167 IU/L (3-129); ALT (GPT) 19 IU/L (3-49); AST (GOT) 50 IU/L (2-34); CHLORIDE 101 MEQ/L (99-109); GLUCOSE 187 mg/dL (70-99); POTASSIUM 5.1 MEQ/L (3.7-5.4); SODIUM 136 MEQ/L (136-147); TOTAL BILIRUBIN 0.4 MG/DL (0.0-1.0); TOTAL PROTEIN 6.9 G/DL (6.4-8.3); UREA NITROGEN (BUN) 49 mg/dL (9-23)
[2018-05-25 06:22] LABS: CREATININE 4.5 MG/DL (0.6-1.3); GFR ESTIMATE (CALCULATED) 17 mL/min/ (58.99-99999)
[2018-05-25 06:38] VITALS: BP 170/74
[2018-05-25 06:45] LABS: PLATELET COUNT UNABLE TO REPORT K/uL (156-360)
[2018-05-25 13:30] VITALS: BP 140/79
[2018-05-25 16:00] VITALS: BP 130/70
[2018-05-25 21:14] VITALS: BP 140/55
[2018-05-26 01:02] VITALS: BP 138/54
[2018-05-26 02:40] LABS: C DIFF TOXIN POSITIVE (NEGATIVE)
[2018-05-26 04:58] VITALS: BP 140/48
[2018-05-26 06:41] LABS: BASOPHIL (%) 0.3 % (0-1); EOSINOPHIL (%) 0.6 % (0-5); EOSINOPHIL COUNT 0.1 K/uL (0-0.3); HEMATOCRIT 30.4 % (38.0-50.0); HEMOGLOBIN 9.3 G/DL (12.5-16.6); IMMATURE GRANULOCYTE (%) 0.5 % (0.0-0.7); LYMPHOCYTE COUNT 1.1 K/uL (1.0-2.8); MCH 32.4 PG (29.0-34.0); MCHC 30.6 G/DL (30.0-36.0); MCV 105.9 FL (86-99); MONOCYTE (%) 7.1 % (3-12); MONOCYTE COUNT 0.9 K/uL (0-0.8); NEUTROPHIL (%) 82.5 % (45-76); NEUTROPHIL COUNT 10.2 K/uL (1.8-6.4); RBC DIS.WIDTH-CV 15.6 % (11.8-14.6); RED BLOOD COUNT 2.87 M/uL (4.00-5.50); WHITE BLOOD COUNT 12.4 K/uL (4.1-10.2)
[2018-05-26 06:42] LABS: PLATELET COUNT 195 K/uL (156-360)
[2018-05-26 07:10] LABS: CHLORIDE 101 MEQ/L (99-109); GLUCOSE 276 mg/dL (70-99); SODIUM 139 MEQ/L (136-147); UREA NITROGEN (BUN) 32 mg/dL (9-23)
[2018-05-26 07:13] LABS: CREATININE 3.2 MG/DL (0.6-1.3); GFR ESTIMATE (CALCULATED) 25 mL/min/ (58.99-99999); POTASSIUM 3.7 MEQ/L (3.7-5.4)
[2018-05-26 09:02] VITALS: BP 146/60
[2018-05-26 14:06] VITALS: BP 118/56
[2018-05-26 18:08] VITALS: BP 117/60
[2018-05-26 21:00] VITALS: BP 146/60
[2018-05-27 00:28] VITALS: BP 150/62
[2018-05-27 04:00] VITALS: BP 158/64
[2018-05-27 08:39] VITALS: BP 140/60
[2018-05-27 09:31] LABS: BASOPHIL (%) 0.5 % (0-1); EOSINOPHIL (%) 1.5 % (0-5); EOSINOPHIL COUNT 0.1 K/uL (0-0.3); HEMATOCRIT 27.9 % (38.0-50.0); HEMOGLOBIN 8.5 G/DL (12.5-16.6); IMMATURE GRANULOCYTE (%) 0.8 % (0.0-0.7); LYMPHOCYTE (%) 12.7 % (15-42); LYMPHOCYTE COUNT 1.1 K/uL (1.0-2.8); MCH 32.8 PG (29.0-34.0); MCHC 30.5 G/DL (30.0-36.0); MCV 107.7 FL (86-99); MONOCYTE COUNT 0.6 K/uL (0-0.8); NEUTROPHIL (%) 77.5 % (45-76); NEUTROPHIL COUNT 6.6 K/uL (1.8-6.4); PLATELET COUNT 188 K/uL (156-360); RBC DIS.WIDTH-CV 15.6 % (11.8-14.6); RBC DIS.WIDTH-SD 60.5 % (39-53); RED BLOOD COUNT 2.59 M/uL (4.00-5.50); WHITE BLOOD COUNT 8.6 K/uL (4.1-10.2)
[2018-05-27 09:45] LABS: ALBUMIN 3.5 G/DL (3.2-4.8); CHLORIDE 103 MEQ/L (99-109); GFR ESTIMATE (CALCULATED) 17 mL/min/ (58.99-99999); GLUCOSE 262 mg/dL (70-99); PHOSPHORUS 1.8 mg/dL (2.5-4.9); POTASSIUM 3.6 MEQ/L (3.7-5.4); SODIUM 141 MEQ/L (136-147)
[2018-05-27 09:48] LABS: CREATININE 4.5 MG/DL (0.6-1.3); UREA NITROGEN (BUN) 53 mg/dL (9-23)
[2018-05-27 16:01] VITALS: BP 160/60
[2018-05-27 23:37] VITALS: BP 144/60
[2018-05-28 04:10] VITALS: BP 140/70
[2018-05-28 07:37] LABS: HEMATOCRIT 32.9 % (38.0-50.0); HEMOGLOBIN 9.8 G/DL (12.5-16.6); MCH 32.2 PG (29.0-34.0); MCHC 29.8 G/DL (30.0-36.0); MCV 108.2 FL (86-99); NRBC (%) 0.2 /100 WBC (0-0); PLATELET COUNT 204 K/uL (156-360); RBC DIS.WIDTH-CV 15.8 % (11.8-14.6); RBC DIS.WIDTH-SD 61.1 % (39-53); RED BLOOD COUNT 3.04 M/uL (4.00-5.50); WHITE BLOOD COUNT 9.6 K/uL (4.1-10.2)
[2018-05-28 08:11] LABS: CHLORIDE 99 MEQ/L (99-109); GFR ESTIMATE (CALCULATED) 27 mL/min/ (58.99-99999); GLUCOSE 240 mg/dL (70-99); POTASSIUM 3.7 MEQ/L (3.7-5.4); SODIUM 137 MEQ/L (136-147); UREA NITROGEN (BUN) 39 mg/dL (9-23)
[2018-05-28 12:01] VITALS: BP 142/68
[2018-05-28 19:58] VITALS: BP 150/78
[2018-05-29] VITALS: BP 146/87
[2018-05-29 04:25] VITALS: BP 146/68
[2018-05-29 06:37] LABS: HEMATOCRIT 31.9 % (38.0-50.0); HEMOGLOBIN 9.5 G/DL (12.5-16.6); MCH 32.2 PG (29.0-34.0); MCHC 29.8 G/DL (30.0-36.0); MCV 108.1 FL (86-99); NRBC (%) 0.5 /100 WBC (0-0); PLATELET COUNT 191 K/uL (156-360); RBC DIS.WIDTH-CV 15.8 % (11.8-14.6); RBC DIS.WIDTH-SD 61.2 % (39-53); RED BLOOD COUNT 2.95 M/uL (4.00-5.50); WHITE BLOOD COUNT 9.7 K/uL (4.1-10.2)
[2018-05-29 07:00] LABS: CHLORIDE 100 MEQ/L (99-109); GFR ESTIMATE (CALCULATED) 18 mL/min/ (58.99-99999); GLUCOSE 229 mg/dL (70-99); POTASSIUM 3.6 MEQ/L (3.7-5.4); SODIUM 138 MEQ/L (136-147)
[2018-05-29 07:01] LABS: CREATININE 4.3 MG/DL (0.6-1.3); UREA NITROGEN (BUN) 66 mg/dL (9-23)
[2018-05-29 08:20] VITALS: BP 164/68
[2018-05-29 10:29] VITALS: BP 186/76
[2018-05-30 00:13] VITALS: BP 166/76
[2018-05-30 08:00] VITALS: BP 139/57
[2018-05-30 14:48] LABS: BASOPHIL (%) 0.7 % (0-1); BASOPHIL COUNT 0.1 K/uL (0-0.1); EOSINOPHIL (%) 1.6 % (0-5); EOSINOPHIL COUNT 0.2 K/uL (0-0.3); HEMATOCRIT 29.8 % (38.0-50.0); HEMOGLOBIN 9.4 G/DL (12.5-16.6); IMMATURE GRANULOCYTE (%) 3.8 % (0.0-0.7); LYMPHOCYTE (%) 19.8 % (15-42); LYMPHOCYTE COUNT 2.1 K/uL (1.0-2.8); MCH 34.2 PG (29.0-34.0); MCHC 31.5 G/DL (30.0-36.0); MCV 108.4 FL (86-99); MONOCYTE (%) 7.3 % (3-12); MONOCYTE COUNT 0.8 K/uL (0-0.8); NEUTROPHIL (%) 66.8 % (45-76); NEUTROPHIL COUNT 7.1 K/uL (1.8-6.4); NRBC (%) 0.4 /100 WBC (0-0); PLATELET COUNT 214 K/uL (156-360); RBC DIS.WIDTH-CV 16.4 % (11.8-14.6); RBC DIS.WIDTH-SD 62.2 % (39-53); RED BLOOD COUNT 2.75 M/uL (4.00-5.50); WHITE BLOOD COUNT 10.6 K/uL (4.1-10.2)
[2018-05-30 15:16] LABS: ALBUMIN 3.4 G/DL (3.2-4.8); CHLORIDE 102 MEQ/L (99-109); GLUCOSE 283 mg/dL (70-99); POTASSIUM 3.9 MEQ/L (3.7-5.4); SODIUM 140 MEQ/L (136-147)
[2018-05-30 15:24] LABS: CREATININE 5.8 MG/DL (0.6-1.3); GFR ESTIMATE (CALCULATED) 12 mL/min/ (58.99-99999); PHOSPHORUS 3.6 mg/dL (2.5-4.9); UREA NITROGEN (BUN) 100 mg/dL (9-23)
[2018-05-30 20:03] VITALS: BP 160/58
[2018-05-31 00:50] VITALS: BP 120/60
[2018-05-31 05:49] LABS: BASOPHIL (%) 0.8 % (0-1); BASOPHIL COUNT 0.1 K/uL (0-0.1); EOSINOPHIL (%) 2.1 % (0-5); EOSINOPHIL COUNT 0.2 K/uL (0-0.3); HEMATOCRIT 33.4 % (38.0-50.0); HEMOGLOBIN 10.1 G/DL (12.5-16.6); IMMATURE GRANULOCYTE (%) 3.6 % (0.0-0.7); LYMPHOCYTE (%) 18.5 % (15-42); LYMPHOCYTE COUNT 1.8 K/uL (1.0-2.8); MCH 32.7 PG (29.0-34.0); MCHC 30.2 G/DL (30.0-36.0); MCV 108.1 FL (86-99); MONOCYTE COUNT 0.9 K/uL (0-0.8); NEUTROPHIL COUNT 6.4 K/uL (1.8-6.4); NRBC (%) 0.3 /100 WBC (0-0); PLATELET COUNT 211 K/uL (156-360); RBC DIS.WIDTH-CV 16.8 % (11.8-14.6); RBC DIS.WIDTH-SD 62.2 % (39-53); RED BLOOD COUNT 3.09 M/uL (4.00-5.50); WHITE BLOOD COUNT 9.6 K/uL (4.1-10.2)
[2018-05-31 06:16] LABS: CHLORIDE 101 MEQ/L (99-109); CREATININE 3.4 MG/DL (0.6-1.3); GFR ESTIMATE (CALCULATED) 23 mL/min/ (58.99-99999); GLUCOSE 207 mg/dL (70-99); POTASSIUM 3.7 MEQ/L (3.7-5.4); SODIUM 139 MEQ/L (136-147); UREA NITROGEN (BUN) 44 mg/dL (9-23)
[2018-05-31 08:19] VITALS: BP 162/70
[2018-05-31 17:51] VITALS: BP 147/84
[2018-05-31 23:43] VITALS: BP 150/80
[2018-06-01 07:00] VITALS: BP 159/74
[2018-06-01 09:11] LABS: HEMATOCRIT 31.5 % (38.0-50.0); HEMOGLOBIN 9.8 G/DL (12.5-16.6); MCH 33.2 PG (29.0-34.0); MCHC 31.1 G/DL (30.0-36.0); MCV 106.8 FL (86-99); PLATELET COUNT 221 K/uL (156-360); RBC DIS.WIDTH-CV 16.5 % (11.8-14.6); RBC DIS.WIDTH-SD 61.7 % (39-53); RED BLOOD COUNT 2.95 M/uL (4.00-5.50); WHITE BLOOD COUNT 13.2 K/uL (4.1-10.2)
[2018-06-01 09:21] LABS: ALBUMIN 3.3 G/DL (3.2-4.8); CHLORIDE 101 MEQ/L (99-109); SODIUM 137 MEQ/L (136-147)
[2018-06-01 09:27] LABS: GFR ESTIMATE (CALCULATED) 14 mL/min/ (58.99-99999); GLUCOSE 287 mg/dL (70-99); PHOSPHORUS 3.4 mg/dL (2.5-4.9)
[2018-06-01 09:41] LABS: CREATININE 5.1 MG/DL (0.6-1.3); UREA NITROGEN (BUN) 75 mg/dL (9-23)
[2018-06-01 13:29] VITALS: BP 140/71
[2018-06-01 16:40] VITALS: BP 170/79
[2018-06-02 00:04] VITALS: BP 140/80
[2018-06-02 06:19] LABS: HEMATOCRIT 34.7 % (38.0-50.0); HEMOGLOBIN 10.7 G/DL (12.5-16.6); MCH 33.3 PG (29.0-34.0); MCHC 30.8 G/DL (30.0-36.0); MCV 108.1 FL (86-99); PLATELET COUNT 232 K/uL (156-360); RBC DIS.WIDTH-CV 16.4 % (11.8-14.6); RBC DIS.WIDTH-SD 63.7 % (39-53); RED BLOOD COUNT 3.21 M/uL (4.00-5.50); WHITE BLOOD COUNT 18.7 K/uL (4.1-10.2)
[2018-06-02 07:33] LABS: CHLORIDE 100 MEQ/L (99-109); GFR ESTIMATE (CALCULATED) 21 mL/min/ (58.99-99999); GLUCOSE 330 mg/dL (70-99); POTASSIUM 4.1 MEQ/L (3.7-5.4); SODIUM 137 MEQ/L (136-147); UREA NITROGEN (BUN) 45 mg/dL (9-23)
[2018-06-02 07:40] LABS: CREATININE 3.7 MG/DL (0.6-1.3)
[2018-06-02 07:50] VITALS: BP 167/78
[2018-06-02 16:05] VITALS: BP 144/75
[2018-06-03 00:43] VITALS: BP 172/80
[2018-06-03 06:41] LABS: BASOPHIL (%) 0.2 % (0-1); BASOPHIL COUNT 0.1 K/uL (0-0.1); EOSINOPHIL (%) 0.1 % (0-5); HEMATOCRIT 35.4 % (38.0-50.0); HEMOGLOBIN 10.6 G/DL (12.5-16.6); LYMPHOCYTE (%) 6.9 % (15-42); LYMPHOCYTE COUNT 1.7 K/uL (1.0-2.8); MCH 32.6 PG (29.0-34.0); MCHC 29.9 G/DL (30.0-36.0); MCV 108.9 FL (86-99); MONOCYTE (%) 6.8 % (3-12); MONOCYTE COUNT 1.6 K/uL (0-0.8); NEUTROPHIL COUNT 20.4 K/uL (1.8-6.4); PLATELET COUNT 247 K/uL (156-360); RBC DIS.WIDTH-SD 63.7 % (39-53); RED BLOOD COUNT 3.25 M/uL (4.00-5.50)
[2018-06-03 07:00] LABS: CHLORIDE 103 MEQ/L (99-109); GFR ESTIMATE (CALCULATED) 13 mL/min/ (58.99-99999); GLUCOSE 378 mg/dL (70-99); POTASSIUM 4.6 MEQ/L (3.7-5.4); SODIUM 143 MEQ/L (136-147)
[2018-06-03 07:08] LABS: CREATININE 5.7 MG/DL (0.6-1.3); UREA NITROGEN (BUN) 78 mg/dL (9-23)
[2018-06-03 07:24] VITALS: BP 124/82
[2018-06-03 19:30] VITALS: BP 98/56
[2018-06-03 20:08] LABS: ALBUMIN 3.3 G/DL (3.2-4.8); ALKALINE PHOSPHATASE 177 IU/L (3-129); ALT (GPT) 12 IU/L (3-49); AST (GOT) 11 IU/L (2-34); DIRECT BILIRUBIN 0.1 mg/dL (0.0-0.3); TOTAL BILIRUBIN 0.4 MG/DL (0.0-1.0); TOTAL PROTEIN 7.6 G/DL (6.4-8.3)
[2018-06-03 21:35] LABS: COMMENTS - BLOOD GASES C+ A+; SITE RRA
[2018-06-03 21:36] LABS: DEVICE NC; O2 FLOW 2 L/MIN; PCO2 48 mm Hg (35-45); PO2 67 mm Hg (80-100); pH 7.39 (7.35-7.45)
[2018-06-03 21:37] LABS: BASE EXCESS 3.3 mEq/L (-3 to +3); BICARBONATE 29.1 mEq/L (22-26); CARBOXY HGB 3.5 % (0-5); METHEMOGLOBIN 1 % (0-1.5); O2 SATURATION (CALCULATED) 94.8 % (95-99)
[2018-06-03 21:38] LABS: ALBUMIN 3.6 g/dL (3.2-4.8); CHLORIDE 100 mEq/L (99-109); POTASSIUM 4.6 mEq/L (3.7-5.4); SODIUM 142 mEq/L (136-147)
[2018-06-03 21:41] LABS: GLUCOSE 285 mg/dL (70-99); TOTAL PROTEIN 8.4 g/dL (6.4-8.3)
[2018-06-03 21:43] LABS: TOTAL BILIRUBIN 0.9 mg/dL (0.0-1.0)
[2018-06-03 21:44] LABS: ALKALINE PHOSPHATASE 178 IU/L (3-129); GFR ESTIMATE (CALCULATED) 21 mL/min/ (58.99-99999)
[2018-06-03 21:45] LABS: CREATININE 3.7 mg/dL (0.6-1.3)
[2018-06-03 21:46] LABS: AST (GOT) 21 IU/L (2-34); UREA NITROGEN (BUN) 42 mg/dL (9-23)
[2018-06-03 21:47] LABS: ALT (GPT) 19 IU/L (3-49)
[2018-06-03 22:10] LABS: PLAT.SUFFICIENCY ADEQUATE
[2018-06-03 22:11] LABS: HEMATOCRIT 35.6 % (38.0-50.0); MCHC 30.9 G/DL (30.0-36.0); MCV 106.9 FL (86-99); NRBC (%) 0.1 /100 WBC (0-0); PLATELET COUNT 318 K/uL (156-360); RBC DIS.WIDTH-CV 15.9 % (11.8-14.6); RBC DIS.WIDTH-SD 62.2 % (39-53); RED BLOOD COUNT 3.33 M/uL (4.00-5.50)
[2018-06-04 06:39] LABS: HEMATOCRIT 33.8 % (38.0-50.0); HEMOGLOBIN 10.4 G/DL (12.5-16.6); MCHC 30.8 G/DL (30.0-36.0); MCV 107.3 FL (86-99); NRBC (%) 0.1 /100 WBC (0-0); PLATELET COUNT 297 K/uL (156-360); RBC DIS.WIDTH-CV 15.9 % (11.8-14.6); RBC DIS.WIDTH-SD 61.8 % (39-53); RED BLOOD COUNT 3.15 M/uL (4.00-5.50); WHITE BLOOD COUNT 28.1 K/uL (4.1-10.2)
[2018-06-04 07:07] LABS: CHLORIDE 96 MEQ/L (99-109); CREATININE 4.1 MG/DL (0.6-1.3); GFR ESTIMATE (CALCULATED) 19 mL/min/ (58.99-99999); GLUCOSE 263 mg/dL (70-99); POTASSIUM 4.6 MEQ/L (3.7-5.4); SODIUM 141 MEQ/L (136-147); UREA NITROGEN (BUN) 50 mg/dL (9-23)
[2018-06-04 07:35] VITALS: BP 112/53
[2018-06-04 14:58] LABS: HEPATITIS B SURFACE ANTIGEN Nonreactive
[2018-06-04 15:00] LABS: HEPATITIS B SURFACE ANTIBODY REACTIVE
[2018-06-04 15:15] VITALS: BP 140/65
[2018-06-04 20:44] VITALS: BP 136/62
[2018-06-04 23:15] VITALS: BP 154/65
[2018-06-05 07:45] VITALS: BP 134/66
[2018-06-05 09:26] LABS: HEMATOCRIT 31.2 % (38.0-50.0); HEMOGLOBIN 9.5 G/DL (12.5-16.6); MCH 33.2 PG (29.0-34.0); MCHC 30.4 G/DL (30.0-36.0); MCV 109.1 FL (86-99); PLATELET COUNT 299 K/uL (156-360); RBC DIS.WIDTH-CV 15.8 % (11.8-14.6); RED BLOOD COUNT 2.86 M/uL (4.00-5.50); WHITE BLOOD COUNT 26.5 K/uL (4.1-10.2)
[2018-06-05 09:49] LABS: CHLORIDE 101 MEQ/L (99-109); CREATININE 5.8 MG/DL (0.6-1.3); GFR ESTIMATE (CALCULATED) 12 mL/min/ (58.99-99999); GLUCOSE 256 mg/dL (70-99); POTASSIUM 4.3 MEQ/L (3.7-5.4); SODIUM 150 MEQ/L (136-147); UREA NITROGEN (BUN) 69 mg/dL (9-23)
[2018-06-05 15:00] VITALS: BP 133/66
[2018-06-06 00:37] VITALS: BP 122/56
[2018-06-06 06:12] LABS: HEMATOCRIT 31.5 % (38.0-50.0); HEMOGLOBIN 9.2 G/DL (12.5-16.6); MCH 32.6 PG (29.0-34.0); MCHC 29.2 G/DL (30.0-36.0); MCV 111.7 FL (86-99); NRBC (%) 0.1 /100 WBC (0-0); PLATELET COUNT 332 K/uL (156-360); RBC DIS.WIDTH-CV 15.9 % (11.8-14.6); RBC DIS.WIDTH-SD 65.1 % (39-53); RED BLOOD COUNT 2.82 M/uL (4.00-5.50); WHITE BLOOD COUNT 21.6 K/uL (4.1-10.2)
[2018-06-06 06:42] LABS: CHLORIDE 104 MEQ/L (99-109); GFR ESTIMATE (CALCULATED) 10 mL/min/ (58.99-99999); GLUCOSE 136 mg/dL (70-99); POTASSIUM 4.1 MEQ/L (3.7-5.4); SODIUM 153 MEQ/L (136-147); UREA NITROGEN (BUN) 77 mg/dL (9-23)
[2018-06-06 06:45] LABS: CREATININE 7.1 MG/DL (0.6-1.3)
[2018-06-06 07:03] VITALS: BP 133/64
[2018-06-06 23:08] VITALS: BP 102/53
[2018-06-07 07:35] VITALS: BP 92/59
[2018-06-07 12:31] LABS: HEMATOCRIT 30.7 % (38.0-50.0); HEMOGLOBIN 9.1 G/DL (12.5-16.6); MCH 32.7 PG (29.0-34.0); MCHC 29.6 G/DL (30.0-36.0); MCV 110.4 FL (86-99); NRBC (%) 0.3 /100 WBC (0-0); PLATELET COUNT 334 K/uL (156-360); RBC DIS.WIDTH-CV 16.2 % (11.8-14.6); RBC DIS.WIDTH-SD 65.3 % (39-53); RED BLOOD COUNT 2.78 M/uL (4.00-5.50); WHITE BLOOD COUNT 17.7 K/uL (4.1-10.2)
[2018-06-07 12:57] LABS: CHLORIDE 99 MEQ/L (99-109); GFR ESTIMATE (CALCULATED) 13 mL/min/ (58.99-99999); POTASSIUM 4.1 MEQ/L (3.7-5.4); SODIUM 148 MEQ/L (136-147); UREA NITROGEN (BUN) 56 mg/dL (9-23)
[2018-06-07 12:58] LABS: CREATININE 5.6 MG/DL (0.6-1.3); GLUCOSE 228 mg/dL (70-99)
[2018-06-07 16:30] VITALS: BP 109/57
[2018-06-07 23:46] VITALS: BP 116/53
[2018-06-08 07:35] VITALS: BP 108/55
[2018-06-08 09:41] LABS: HEMATOCRIT 29.7 % (38.0-50.0); HEMOGLOBIN 8.8 G/DL (12.5-16.6); MCHC 29.6 G/DL (30.0-36.0); MCV 111.2 FL (86-99); NRBC (%) 0.3 /100 WBC (0-0); PLATELET COUNT 364 K/uL (156-360); RBC DIS.WIDTH-CV 16.4 % (11.8-14.6); RBC DIS.WIDTH-SD 66.3 % (39-53); RED BLOOD COUNT 2.67 M/uL (4.00-5.50); WHITE BLOOD COUNT 18.5 K/uL (4.1-10.2)
[2018-06-08 09:58] LABS: ALBUMIN 3.5 G/DL (3.2-4.8); CHLORIDE 99 MEQ/L (99-109); GLUCOSE 203 mg/dL (70-99); POTASSIUM 3.9 MEQ/L (3.7-5.4); SODIUM 149 MEQ/L (136-147); UREA NITROGEN (BUN) 76 mg/dL (9-23)
[2018-06-08 10:18] LABS: CREATININE 6.7 MG/DL (0.6-1.3); GFR ESTIMATE (CALCULATED) 11 mL/min/ (58.99-99999); PHOSPHORUS 5.4 mg/dL (2.5-4.9)
[2018-06-08 10:25] LABS: TOTAL PROTEIN 8.6 G/DL (6.4-8.3)
[2018-06-08 10:26] LABS: ALKALINE PHOSPHATASE 336 IU/L (3-129); ALT (GPT) 68 IU/L (3-49); AST (GOT) 73 IU/L (2-34); TOTAL BILIRUBIN 2.8 MG/DL (0.0-1.0)
[2018-06-08 13:21] LABS: COMMENTS - BLOOD GASES A+C+; DEVICE NC; O2 FLOW 6 L/MIN; PCO2 49 mm Hg (35-45); SITE RR; pH 7.34 (7.35-7.45)
[2018-06-08 13:22] LABS: BASE EXCESS 0.3 mEq/L (-3 to +3); BICARBONATE 26.4 mEq/L (22-26); METHEMOGLOBIN 0.2 % (0-1.5)
[2018-06-08 13:23] LABS: PO2 35 mm Hg (80-100)
== END 2018-06-08 17:32 | DRG 871 ==
LOC: EME → EDBD 00:29 → EME 00:29 → 3EAST 03:32 → EDOF 03:32 → ENRESERV 03:34 → 4EAST 06:17 → ENRESERV 05-25 07:49 → 4EAST 05-25 07:59 → 3EAST 05-25 12:54 → ENRESERV 05-29 07:46 → 5EAST 05-29 10:09
PROVIDERS: Emergency Medicine; Family Medicine; Hospitalist; Internal Medicine Nephrology; Physician Assistant; Physician Assistant Medical
DX: A41.9 Sepsis, unspecified organism (principal); J69.0 Pneumonitis due to inhalation of food and vomit; J96.21 Acute and chronic respiratory failure with hypoxia; A04.72 Enterocolitis due to Clostridium difficile, not specified as recurrent; N18.6 End stage renal disease; I13.2 Hypertensive heart and chronic kidney disease with heart failure and with stage 5 chronic kidney disease, or end stage renal disease; E87.2 Acidosis; E11.65 Type 2 diabetes mellitus with hyperglycemia; G82.50 Quadriplegia, unspecified; K81.0 Acute cholecystitis; D63.1 Anemia in chronic kidney disease; L02.31 Cutaneous abscess of buttock; E11.22 Type 2 diabetes mellitus with diabetic chronic kidney disease; E87.0 Hyperosmolality and hypernatremia; Z79.82 Long term (current) use of aspirin; I50.9 Heart failure, unspecified; K65.1 Peritoneal abscess; G89.29 Other chronic pain; F11.20 Opioid dependence, uncomplicated; R13.10 Dysphagia, unspecified; I42.9 Cardiomyopathy, unspecified; R47.01 Aphasia; J44.9 Chronic obstructive pulmonary disease, unspecified; Z66 Do not resuscitate; Z99.81 Dependence on supplemental oxygen; Z87.891 Personal history of nicotine dependence; Z74.01 Bed confinement status; Z99.2 Dependence on renal dialysis; Z87.01 Personal history of pneumonia (recurrent); Z87.820 Personal history of traumatic brain injury; Z93.4 Other artificial openings of gastrointestinal tract status; Z93.1 Gastrostomy status; Z86.19 Personal history of other infectious and parasitic diseases; Z79.4 Long term (current) use of insulin
CPT/HCPCS: 36600; 71045; 71250; 74018; 74176; 74177; 75989; 76705; 78227; 78999; 80048; 80053; 80069; 80076; 81003; 82803; 82948; 83605; 83690; 83880; 84145 90; 84484; 85025; 85027; 85610; 85730; 86706; 87040; 87070; 87075; 87081; 87205; 87278; 87340; 87493; 87641; 93005; 94640; 94760; 94799; 99281; 99285; A9537; C1753; C1769; C9113; J0360; J0696; J0881; J1644; J1815; J1956; J2270; J2405; J2543; J2765; J2805; J3243; J7050; J7120; S0028; S0030